=== PATIENT | male | born 1945 | race Caucasian/White ===

== ENCOUNTER 2017-01-10 09:24 | Emergency (ER) | payer MEDICARE, BC ==
[2017-01-10 11:18] LABS: Hematocrit 50 % (42-52); Hemoglobin 16.9 g/dl (14.0-18.0); Mean Corpuscular HGB Conc 34 g/dl (31-36); Mean Corpuscular Hemoglobin 33 pg (27-31); Mean Corpuscular Volume 98 fL (80-94); Mean Platelet Volume 9 um3 (7.4-10.4); Red Blood Count 5.08 10^6/ul (4.0-5.4); Red Cell Distribution Width 13 % (10.5-15); White Blood Count 5.2 10^3/ul (3.5-10.8)
[2017-01-10 11:31] LABS: Albumin 4.4 g/dL (3.2-5.2); BUN/Creatinine Ratio 15.7 (8-20); C Reactive Protein 1.25 mg/L (< 5.00); Calcium 9.5 mg/dL (8.6-10.3); EGFR African American 92.6 (>60); Globulin 2.8 g/dL (2-4); Total Bilirubin 0.4 mg/dL (0.2-1.0); Total Protein 7.2 g/dL (6.4-8.9)
--- NOTE | 2017-01-10 11:36 | RAD ---
Indication: RIGHT testicular pain. Comparison: No relevant prior exams available on the [facility] [place] for comparison. Technique: Scrotal ultrasound. Report: Normal echotexture 4.1 x 1.8 x 2.4 cm RIGHT testicle and 3.8 x 1.9 x 2.2 cm LEFT testicle with normal range symmetric vascularity on Doppler. No intratesticular lesions evident. 0.6 x 1.3 cm RIGHT epididymis head is remarkable for a 0.3 cm maximum dimension epididymal head cyst or spermatocele without concern. Small RIGHT hydrocele. Negative for varicocele. 1.1 x 0.8 cm LEFT epididymis head is remarkable for a 0.5 cm maximum dimension epididymal head cyst or spermatocele without concern. Small RIGHT hydrocele. Negative for varicocele. IMPRESSION: 1. No evidence for testicular torsion, epididymoorchitis, or presence of an intratesticular lesion. 2. Small bilateral epididymal head cysts or spermatoceles without concern. 3. Small bilateral hydroceles.
[2017-01-10 12:30] LABS: Urine Bilirubin Negative (Negative); Urine Glucose Negative (Negative); Urine Nitrite Negative (Negative)
[2017-01-10 12:31] VITALS: BP 143/94
--- NOTE | 2017-01-10 12:45 | ED ---
Karyn Estrada Gabriel, scribed for Noam Maciel MD on 01/10/17 at 1003 . GI/ HPI - HPI Summary HPI Summary: This patient is a 71 year old M presenting to [facility] with a chief complaint of groin pain since 4 weeks prior. The patient rates the pain 1/10 in severity and describes it as an intermittent spasms that radiate into his right testicle. Symptoms aggravated by cardio exercise. Patient denies any heavy lifting. - History of Current Complaint Chief Complaint: EDUrogenitalProblems Stated Complaint: GROIN PAIN Hx Obtained From: Patient Onset/Duration: Started Weeks Ago - 4, Still Present Timing: Constant Pain Intensity: 1 Location of Pain: Radiates to: - testicle, Groin Pain Characteristics: Other: - spasm - Allergy/Home Medications Allergies/Adverse Reactions: Allergies Allergy/AdvReac Type Severity Reaction Status Date / Time No Known Allergies Allergy Verified 10/01/15 19:12 PMH/Surg Hx/FS Hx/Imm Hx Previously Healthy: No Endocrine/Hematology History: Denies: Hx Diabetes Cardiovascular History: Reports: Hx Hypertension Infectious Disease History: No Infectious Disease History: Denies: Traveled Outside the [place] in Last 30 Days - Family History Known Family History: Positive: Cardiac Disease - mother Negative: Diabetes - Social History Alcohol Use: None Hx Substance Use: No Substance Use Type: Reports: None Hx Tobacco Use: No Smoking Status (MU): Never Smoked Tobacco Review of Systems Negative: Fever Positive: other - pain in groin and right testicle All Other Systems Reviewed And Are Negative: Yes Physical Exam - Summary Physical Exam Summary: VITAL SIGNS: Reviewed. GENERAL: Patient is a well-developed and nourished male who is lying comfortable in the stretcher. ~Patient is not in any acute respiratory distress. HEAD AND FACE: Normocephalic and atraumatic. EYES: PERRLA, EOMI x 2, No injected conjunctiva. EARS: Hearing grossly intact. Ear canals and tympanic membranes are WNL. MOUTH: Oropharynx within normal limits. NECK: Supple, trachea is midline, no adenopathy, no JVD. CHEST: Symmetric, no tenderness at palpation LUNGS: Clear to auscultation bilaterally. No wheezing or crackles. CVS: RRR, S1 and S2 present, no murmurs or gallops appreciated. ABDOMEN: Soft, non-tender. No signs of distention. Positive bowel sounds. No rebound no guarding, and no masses palpated. No abdominal bruit or pulsations. EXTREMITIES: FROM in all major joints, no edema, no cyanosis or clubbing. NEURO: Alert and oriented x 3. No acute neurological deficits. Speech is normal. SKIN: Dry and warm : Circumcised penis, both testicles are descended. No masses are appreciated. Positive cremasteric reflex. Triage Information Reviewed: Yes Vital Signs On Initial Exam: Initial Vitals Temp Pulse Resp BP Pulse Ox 96.6 F 93 17 147/99 98 01/10/17 09:26 01/10/17 09:26 01/10/17 09:26 01/10/17 09:26 01/10/17 09:26 Vital Signs Reviewed: Yes - Erik Coma Scale Coma Scale Total: 15 Diagnostics - Vital Signs Vital Signs Temp Pulse Resp BP Pulse Ox 01/10/17 09:26 96.6 F 93 17 147/99 98 - Laboratory Lab Results: Lab Results 01/10/17 01/10/17 01/10/17 Range/Units 11:00 11:00 12:05 WBC 5.2 (3.5-10.8) 10^3/ul RBC 5.08 (4.0-5.4) 10^6/ul Hgb 16.9 (14.0-18.0) g/dl Hct 50 (42-52) % MCV 98 H (80-94) fL MCH 33 H (27-31) pg MCHC 34 (31-36) g/dl RDW 13 (10.5-15) % Plt Count 203 (150-450) 10^3/ul MPV 9 (7.4-10.4) um3 Neut % (Auto) 62.8 (38-83) % Lymph % (Auto) 24.5 L (25-47) % Valley % (Auto) 11.1 H (1-9) % Eos % (Auto) 0.7 (0-6) % Baso % (Auto) 0.9 (0-2) % Absolute Neuts (auto) 3.3 (1.5-7.7) 10^3/ul Absolute Lymphs (auto) 1.3 (1.0-4.8) 10^3/ul Absolute Monos (auto) 0.6 (0-0.8) 10^3/ul Absolute Eos (auto) 0 (0-0.6) 10^3/ul Absolute Basos (auto) 0 (0-0.2) 10^3/ul Absolute Nucleated RBC 0 10^3/ul Nucleated RBC % 0.1 Sodium 135 (133-145) mmol/L Potassium 4.0 (3.5-5.0) mmol/L Chloride 105 (101-111) mmol/L Carbon Dioxide 24 (22-32) mmol/L Anion Gap 6 (2-11) mmol/L BUN 16 (6-24) mg/dL Creatinine 1.02 (0.67-1.17) mg/dL Est GFR ( Amer) 92.6 (>60) Est GFR (Non-Af Amer) 72.0 (>60) BUN/Creatinine Ratio 15.7 (8-20) Glucose 116 H (70-100) mg/dL Calcium 9.5 (8.6-10.3) mg/dL Total Bilirubin 0.40 (0.2-1.0) mg/dL AST 18 (13-39) U/L ALT 28 (7-52) U/L Alkaline Phosphatase 47 (34-104) U/L C-Reactive Protein 1.25 (< 5.00) mg/L Total Protein 7.2 (6.4-8.9) g/dL Albumin 4.4 (3.2-5.2) g/dL Globulin 2.8 (2-4) g/dL Albumin/Globulin Ratio 1.6 (1-3) Urine Color Yellow Urine Appearance Clear Urine pH 6.0 (5-9) Ur Specific Hudson 1.009 L (1.010-1.030) Urine Protein Negative (Negative) Urine Ketones Negative (Negative) Urine Blood Negative (Negative) Urine Nitrate Negative (Negative) Urine Bilirubin Negative (Negative) Urine Urobilinogen Negative (Negative) Ur Leukocyte Esterase Negative (Negative) Urine Glucose Negative (Negative) Result Diagrams: 01/10/17 11:00 01/10/17 11:00 Lab Statement: Any lab studies that have been ordered have been reviewed, and results considered in the medical decision making process. - Additional Comments Diagnostic Additional Comments: US testicle reveals, per radiologist, 1. No evidence for testicular torsion, epididymoorchitis, or presence of an intratesticular lesion. 2. Small bilateral epididymal head cysts or spermatoceles without concern. 3. Small bilateral hydroceles. ED physician has reviewed this radiology report and agrees. GIGU Course/Dx - Course Assessment/Plan: In the ED course an IV access was obtained. Patient was placed in a superintendent construction. Patient was started with IV fluids. P/E did not demonstrate any inguinal hernia, hematomas, ecchymosis. No testicular masses or tenderness. Labs without any significant abnormalities. Testicular U/S impression: 1. No evidence for testicular torsion, epididymoorchitis, or presence of an. intratesticular lesion. 2. Small bilateral epididymal head cysts or spermatoceles without concern. 3. Small bilateral hydroceles. Patient continues to be asymptomatic. UA: is negative. I discussed all the findings and test results with the patient. Patient was instructed to return to the emergency room immediately if any of the symptoms return or worsens. They were explained the possibility of an early abdominal pathology which was not detected at this time despite the physical exam and testing. They understand and agree. Abdominal exam before discharge: Soft, NT. No signs of distention. BS present. No rebound no guarding, and no masses palpated. Patient is alert and oriented and hemodynamically stable. Patient is to follow up with primary care physician in the next 2 to 3 days. Patient agree and understands. - Diagnoses Differential Diagnoses - Male: Testicular Torsion, Urinary Tract Infection, Other Provider Diagnoses: Inguinal pain, Testicular pain Discharge - Discharge Plan Condition: Stable Disposition: HOME Patient Education Materials: Testicle Pain (ED) Referrals: Carole Saldana MD [Primary Care Provider] - 3 Days Additional Instructions: RETURN TO THE EMERGENCY DEPARTMENT FOR CHANGING OR WORSENING SYMPTOMS. The documentation as recorded by the Karyn butcher Gabriel accurately reflects the service I personally performed and the decisions made by , Noam Maciel MD.
== END 2017-01-10 12:31 | disposition home or self-care (01) ==
LOC: ED 09:24
DX: N50.811 Right testicular pain (principal); R10.30 Lower abdominal pain, unspecified; R25.2 Cramp and spasm
CPT/HCPCS: 36415; 76870; 80053; 81003; 85025; 86140; 99282

== ENCOUNTER 2020-01-11 08:49 | Observation (INO) ==
[2020-01-11 09:44] LABS: ABS Eosinophils 0.1 10^3/ul (0-0.6); ABS Lymphocytes 1.5 10^3/ul (1.0-4.8); ABS Monocytes 0.6 10^3/ul (0-0.8); ABS Neutrophils 4.2 10^3/ul (1.5-7.7); Eosinophil % 0.8 %; Hematocrit 47 % (42-52); Hemoglobin 16.4 g/dL (14.0-18.0); Mean Corpuscular HGB Conc 35 g/dL (31-36); Mean Corpuscular Hemoglobin 34 pg (27-31); Mean Corpuscular Volume 97 fL (80-94); Mean Platelet Volume 9.5 fL (7.4-10.4); Platelet Count 167 10^3/uL (150-450); Red Cell Distribution Width 13 % (10-15); White Blood Count 6.4 10^3/uL (3.5-10.8)
[2020-01-11 09:57] LABS: INR 0.97 (0.82-1.09)
[2020-01-11 10:01] LABS: Albumin 4.3 g/dL (3.2-5.2); Albumin/Globulin Ratio 1.5 (1-3); BUN/Creatinine Ratio 18.5 (8-20); Calcium 9.5 mg/dL (8.6-10.3); EGFR African American 97.3 (>60); EGFR Non-African American 80.4 (>60); Globulin 2.8 g/dL (2-4); Total Bilirubin 0.4 mg/dL (0.2-1.0); Total Protein 7.1 g/dL (6.4-8.9)
[2020-01-11 10:03] LABS: Troponin I 0.01 ng/mL (<0.03)
[2020-01-11 10:37] LABS: Magnesium 1.9 mg/dL (1.9-2.7)
[2020-01-11] MEDS ORDERED: Ondansetron 4 mg VIAL 2 MG/ML 2 ml VIAL IV PRN (11:13)
[2020-01-11] MEDS ORDERED: NS 0.9% 1000 ml BAG 1,000 ML IV SCH (11:15)
[2020-01-11] MEDS ORDERED: Dextrose 50% Syringe 50 ml 25 GM/50 ML SYRINGE IV PUSH PRN (11:26)
[2020-01-11 11:52] LABS: HDL Cholesterol 39.4 mg/dL
[2020-01-11] MEDS ORDERED: Enoxaparin 40 MG/0.4 ML SYR SUBCUT SCH (12:00)
[2020-01-11] MEDS ORDERED: Regadenoson 0.4 MG/5 ML SYRINGE ONE (13:18)
[2020-01-11] MEDS ORDERED: Aminophylline 25 MG/ML VIAL ONE (13:22)
[2020-01-11] MEDS ORDERED: Perflutren Lipid Microsphere 3 ML VIAL ONE (13:51)
[2020-01-11 16:02] VITALS: BP 142/77
== END 2020-01-11 17:00 | disposition home or self-care (01) ==
LOC: ED 08:49 → MEDTELE 08:49
PROVIDERS: ADMIT Internal Medicine; ATTEND Internal Medicine